=== PATIENT | male | born 2000 | race Caucasian/White ===

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

== ENCOUNTER 2022-01-14 10:05 | Emergency (ER) | payer BC, SELFPAY ==
[2022-01-14 10:10] VITALS: BP 138/64; PULSE 74; RESP 17; TEMP 36.6; O2SAT 98
--- NOTE | 2022-01-14 10:10 | ED.SKABFB ---
HPI - Skin/Abscess/Foreign Bdy General Chief complaint: Skin/Abscess/Foreign Body Stated complaint: Rash Time Seen by Provider: 01/14/22 10:10 Source: patient Mode of arrival: ambulatory Limitations: no limitations History of Present Illness HPI narrative: Mr. Dueñas is a 21-year-old male patient presenting to the clinic today with complaints of skin itching. He reports that his girlfriend had poison marjorie approximately 1 week ago and is concerned that he may be developing the rash. He denies any current rash however he has itchy skin. MD complaint: rash Related Data Home Medications Medication Instructions Recorded Confirmed No Home Medications 01/14/22 01/14/22 Allergies Allergy/AdvReac Type Severity Reaction Status Date / Time No Known Allergies Allergy Verified 01/14/22 10:20 Review of Systems Review of Systems: Pertinent positives per HPI. Patient denies any fever, chills, headache, visual changes, dizziness, cough, runny nose, sore throat, shortness of breath, chest pain, palpitations, nausea, vomiting, diarrhea, constipation, abdominal pain, or any urinary issues. PMFSH Comments At the time of my signature, I reviewed and agree with the nursing past medical, surgical, social, and family history. There is no relevant family history pertinent to the patient complaint. Exam Narrative: General: Well-developed, well nourished, in no apparent distress Head: Normocephalic, atraumatic. Cardio: Regular rate and rhythm, s1 and s2 normal, no murmur appreciated. Resp: Clear to auscultation bilaterally, no rhonchi, rales, wheezing or rubs. Integumentary: [place], warm, and dry, intact without lesion, no rashes. Course Course Emergency Course: Portions of this record may have been created with voice recognition software. Level of Care: Express Care Visit Vital Signs Vital signs: Vital Signs Temperature 36.6 C 01/14/22 10:10 Pulse Rate 74 01/14/22 10:10 Respiratory Rate 01/14/22 10:10 Blood Pressure 138/64 01/14/22 10:10 Pulse Oximetry 98 01/14/22 10:10 Temperature 36.6 C 01/14/22 10:10 Pulse Rate 74 01/14/22 10:10 Respiratory Rate 01/14/22 10:10 Blood Pressure 138/64 01/14/22 10:10 Pulse Oximetry 98 01/14/22 10:10 Vital signs reviewed MDM - Skin/Abscess/Foreign Bdy MDM Narrative Medical decision making narrative: At the time of visit patient was resting comfortably on the exam table. He denies any obvious rash however he reports that he has some itchy skin. Skin appears to be dry upon assessment. Supportive measures were discussed for pruritus and patient voiced understanding and agrees to treatment plan. Differential Diagnosis Differential diagnosis: Likely urticaria, contact dermatitis and other (Itchy skin) Discharge Plan Discharge Clinical Impression: Pruritus Patient Disposition: Home, Self-Care Condition: Stable Instructions: Itchy Skin (ED) Additional Instructions: Avoid hot showers Shower every other day Moisturize skin 1-2 times a day May take Benadryl as needed for itching. Follow-up with your PCP in 3 to 5 days if symptoms persist or sooner if they worsen. Prescriptions: No Action No Home Medications RF: 0 Follow-up/Referrals: Sharan Gabriel MD [Primary Care Provider] - Stand Alone Forms: Work/School Release IP Time of Disposition: 10:21 Quality NIHSS Nursing Documentation ED NIHSS nursing documentation: reviewed/agree
== END 2022-01-14 10:30 | disposition home or self-care (01) ==
PROVIDERS: Emergency Provider Nurse Practitioner Family; PCP Pediatrics
DX: L29.9 Pruritus, unspecified (principal)
CPT/HCPCS: 99211; G0463

== ENCOUNTER 2025-07-26 11:34 | Emergency (ER) | payer OTHER, SELFPAY ==
[2025-07-26 11:45] VITALS: BP 156/78; PULSE 75; RESP 20; TEMP 36.6; O2SAT 98
--- NOTE | 2025-07-26 11:56 | ED_ITS ---
HPI - Skin/Abscess/Foreign Bdy General Chief complaint: Skin/Abscess/Foreign Body Stated complaint: Rash Time Seen by Provider: 07/26/25 11:48 Source: patient and RN notes reviewed Mode of arrival: ambulatory Limitations: no limitations History of Present Illness HPI narrative: 24-year-old male presents with concern for rash on his low abdomen, private area, face near his eyes. Reports he was walking [place] the [place] last [place]. He reports he used calamine without relief. He denies any swollen lips, swollen tongue, trouble breathing MD complaint: rash Related Data Home Medications ?Medication ?Instructions ?Recorded ?Confirmed ?Last Taken ?Type No Home Medications 01/14/22 07/26/25 U nknown History Allergies Allergy/AdvReac Type Severity Reaction Status Date / Time No Known Allergies Allergy Verified 07/26/25 11:40 Review of Systems Review of Systems: CONSTITUTIONAL: Denies malaise, chills, sweats, or fever. EYES: Denies redness, or discharge. ENT: Denies rhinorrhea, congestion, swollen lips, swollen tongue CARDIOVASCULAR: Denies chest pain, palpitations, or edema. RESPIRATORY: Denies cough or dyspnea. GASTROINTESTINAL: Denies abdominal pain, nausea, vomiting SKIN: Reports itchy rash the face, groin, lower abdomen MUSCULOSKELETAL: Denies joint pain or myalgia. NEUROLOGIC: Denies headache. All systems reviewed & are unremarkable except as noted in HPI and below PMFSH Comments At time of signature, agree with nursing past medical, surgical, social and family history. There is no relevant family history pertinent to the presenting complaint Exam Narrative: GENERAL: Well-appearing, well-nourished, and in no acute distress. HEAD: Normocephalic, atraumatic. EYES: PERRLA, conjunctivae clear, and EOMI. ENT: Mucous membranes moist. Oropharynx without edema, erythema or lesions. NECK: Supple. No lymphadenopathy CHEST: Clear to auscultation. No respiratory distress. HEART: Regular rate and rhythm. SKIN: Warm, dry. Irregular patches of erythema noted to the lower abdomen and around the eyes NEURO: Alert and oriented x3. PSYCH: Normal mood and affect Course Course Emergency Course: Patient is aware of diagnosis, understands and agrees to treatment plan. Anticipatory guidance given. Patient agrees to follow-up as directed and is aware of reasons to seek care at the emergency department. Portions of this record may have been created with voice recognition software Level of Care: Express Care Visit Vital Signs Vital signs: Vital Signs Temperature 97.9 F 07/26/25 11:45 Pulse Rate 75 07/26/25 11:45 Respiratory Rate 20 07/26/25 11:45 Blood Pressure 156/78 H 07/26/25 11:45 Pulse Oximetry 98 07/26/25 11:45 Oxygen Delivery Room Air 07/26/25 11:45 Temperature 97.9 F 07/26/25 11:45 Pulse Rate 75 07/26/25 11:45 Respiratory Rate 20 07/26/25 11:45 Blood Pressure 156/78 H 07/26/25 11:45 Pulse Oximetry 98 07/26/25 11:45 Oxygen Delivery Room Air 07/26/25 11:45 Reviewed. MDM - Skin/Abscess/Foreign Bdy MDM Narrative Medical decision making narrative: Does not appear at this time to be erythema multiforme, bullous, SJS, TEN; no evidence at this time to suggest RMSF, endocarditis or Lyme disease; patient looks well, nontoxic and is tolerating oral intake; no neurologic signs or symptoms; no headache, photophobia or neck pain; afebrile; appropriate for initial outpatient treatment; discussed the importance of follow-up, patient agrees; question, viral exanthema, contact dermatitis, allergic dermatitis, eczema, urticaria, [ xx ]. No soft palate or uvula edema, no tongue, lip edema or other mucosal involvement, no respiratory compromise, no stridor, no wheezi ng, no wheezing, no history of syncope, no hypotension, no nausea, vomiting, or diarrhea. Instructed patient to go to nearest ER immediately for any worsening symptoms including but not limited to: fever, spreading rash, pain, sore throat, headache, dizziness, chest pain, trouble breathing, or any symptoms concerning to the patient. Critical Care Time Critical Care Time Critical Care Time: No Discharge Plan Discharge Clinical Impression: Contact dermatitis Patient Disposition: Home Condition: Stable Instructions: Poison Vangie (ED) Additional Instructions: Prevention is always better than treatment. Learn to identify poison vangie, oak, and sumac and avoid it. Wear long sleeves, long pants, shoes, and socks. If you touched the plant, try to keep your hands away from your eyes, mouth, and face. Wash the skin thoroughly with soap and cool water as soon as possible. Scrub under the fingernails with a brush to prevent spreading of the resin to other parts of the body by touching or scratching. Remember to wash any clothing with soap and hot water as the resin can persist for many months and cause further dermatitis. You should NOT use antihistamine creams or lotions, anesthetic creams containing benzocaine, or antibiotic creams containing neomycin or bacitracin to the skin. These creams or ointments could make the rash worse. Antihistamines do not help to relieve itching caused by poison vangie dermatitis. For some people, adding oatmeal to a bath, applying cool wet compresses, and applying calamine lotion may help to relieve itching. Once the blisters begin weeping fluid, astringents containing aluminum acetate (Burow's solution) and [place] may help to relieve the rash. IF symptoms get worse to follow up with your primary care provider or seek ER visit if you developing difficulty breathing, weakness, dizziness. Patient Language: Tunisian Prescriptions: No Action No Home Medications Follow-up/Referrals: UNKNOWN,DOCTOR [Primary Care Provider] Time of Disposition: 11:57
--- OUTSIDE RECORDS SUMMARY | 2025-07-26 12:14 | XMS_ITS | Clinical Summary ---
Author Organization [facility] Address [address] [place] [address] Care Team Providers Care Hop Worker Name Role Phone Andrew Mosher NP Primary Care Provider [phone] Allergies No known active allergies Medications cyclobenzaprine (FLEXERIL) 5 mg tabletIndicatio ns:Muscle Spasm Take 1 tablet (5 mg total) by mouth nightly as needed for muscle spasms for up to 15 days 15 tablet 07/22/2024 Active ibuprofen (ADVIL,MOTRIN) 600 mg tabletIndicatio ns:Flank pain Take 1 tablet (600 mg total) by mouth every 6 (six) hours as needed for pain for up to 30 doses 30 tablet 07/22/2024 Active albuterol HFA (PROVENTIL HFA,VENTOLIN HFA,PROAIR HFA) 90 mcg/actuation inhaler Inhale 2 puffs every 6 (six) hours as needed for wheezing 1 each 11/21/2024 11/22/19 26 Active Active Problems Problem Noted Date Diagnosed Date S/P ORIF (open reduction internal fixation) frac ture 06/28/2024 Assessment & Plan (06/28/2024 11:13 AM CDT): He has flare ups of pain with decreased range of motion to the left ankle and will need time off work when this happens Chronic pain of left ankle 06/28/2024 Assessment & Plan (06/28/2024 11:13 AM CDT): He has flare ups of pain with decreased range of motion to the left ankle and will need time off work when this happens Class 1 obesity due to exces s calories without serious comorbidity with body mass index (BMI) of 34.0 to 34.9 in adult 06/28/2024 Assessment & Plan (07/22/2024 1:35 PM ART MANAGER): BMI follow-up: Education provided Assessment & Plan (06/28/2024 11:42 AM CDT): Plan for weight loss is to decrease calories in diet and increase activity Trimalleolar fracture of left ankle 12/16/2022 Sprain of anterior talofibular ligament of right ankle 04/25/2019 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 Abdominal pain 07/04/2016 Immunizations Immunization Administration Dates Next Due DTP 2002 DTaP 02/08/2004,03/31/2003,2002 DTaP, Unspecified 02/11/2008 HPV, Quadrivalent 04/17/2014 HPV9 11/11/2016 Hep A, Pediatric 12/10/2005 Hep A, Unspecified 02/03/2007 Hep B, Adolescent or Pediatric 03/31/2003,2002,2002 HiB 02/08/2004, 3,2002,10/06 IPV 02/08/2004,2002,2002 Influenza, Quadrivalent, Spl it, Preservative Free, Intramuscular 06/29/2016 Influenza, Unspecified 07/22/2024(Deferr ed: Patient Refused),06/11/2023(Deferred: Patient Refused),07/01/2019,08/08/2004, 003 MMR 02/11/2008,08/07/2003 Meningococcal B, OMV (Bexsero) 07/01/2019 Meningococcal MCV4P (Menactra) 07/01/2019,2013 Pneumococcal Conjugate 7-Valent 08/07/20 03,03/31/2003,2002,10/06 Polio, Unspecified 02/11/2008 Tdap 04/17/2014 Varicella 02/11/2008,02/08/2004 Medical History Medical History Date Comments No known health problems Family History Medical History Relation Name Comments Cancer Other Hypertension Other Relation Name Status Comments Other Social History Tobacco Use Types Packs/Day Years Used Date Smoking Tobacco: Never Smokeless Tobacco: Never Tobacco Cessation:Counseling Given: Yes Alcohol Use Standard Drinks/Week Comments Never 0 (1 standard drink = 0.6 oz pur e alcohol) AUDIT-C Answer Date Recorded Frequency of Alcohol Consumption Never 04/26/2019 Average Number of Drinks Not on file 019 Frequency of Binge Drinking Not on file 04/01 PHQ-2 Answer Date Recorded PHQ-2 Total Score (If total score is 3 or more points, staff should administer the PHQ-9) 0 06/28/2024 Hunger Vital Sign Answer Date Recorded Within the past 12 months, y ou worried that your food would run out before you got the money to buy more. Never true 04/17/20 23 Within the past 12 months, t he food you bought just didn't last and you didn't have money to get more. Never true 04/17/2023 Personal Safety Answer Date Recorded Have you ever been in or are you currently in a harmful physical or emotional relationship or is someone making you feel afraid or unsafe? Denies 12/17/2022 Sex and Gender Information Value Date Recorded Sex Assigned at Not on file Legal Sex Male 11:54 AM ART MANAGER Gender Identity Not on file Sexual Orientation Not on file Last Filed Vital Signs Vital Sign Reading Time Taken Comments Blood Pressure 129/60 11/21/2024 1:30 AM CDT Pulse 90 11/21/2024 2:00 AM CDT Temperature 36.2 C (97.1 F) 11/20/2024 11:13 PM CDT Respiratory Rate 16 11/20/2024 11:13 PM CDT Oxygen Saturation 97% 11/21/2024 2:00 AM CDT Inhaled Oxygen Concentration - - Weight 93 kg (205 lb) 11/20/2024 11:13 PM CDT Height 170.2 cm (5' 7) 11/20/2024 11:13 PM CDT Body Mass Index 32.11 11/20/2024 11:13 PM CDT Plan of Treatment Health Maintenance Due Date Last Done Comments Hepatitis C Screening 2002 Meningococcal B Vaccine (2 o f 2 - Bexsero SCDM 2-dose series) 12/30/2019 07/01/2019 DTaP/Tdap/Td Vaccine (7 - Td or Tdap) 04/17/2024 04/17/2014, 02/11/2008, 02/08/2004, Additional history exists Influenza Vaccine (#1) 2025 9, 06/29/2016, 08/08/2004, Additional history exists Depression Screening 06/28/2025 06/28/2024 Regular Well Visit/Exam 18-64 06/28/2025 06/28/2024 Hepatitis B Screening Completed 03/31/2003 , 2002, 2002 Pneumococcal vaccine <65 Completed 003, 03/31/2003, 2002, Additional history exists Varicella Vaccines Completed 02/11/2008, 02/08/2004 HPV Vaccines Completed 11/11/2016, 04/17/2014 Medical Devices Implanted Type Area Green Chain Worker Device Identifier Shelf Expiration Date Model / Serial / Lot Synthes 2.7mm 5mm 22mm 2.5mm Self Tap Stardrive Cortical T8 Screw Bone 202.882 - [id number] Implanted:Qty: 1 on 12/17/2022 by Criselda Davenport MD at [facility] Left: Ankle Synthes I 202.882 / / Synthes 3.5mm 6mm 14mm 2.5mm Self Tap Small Hexagonal Socket Low Profile 204.814 - [id number] Implanted:Qty: 1 on 12/17/2022 by Criselda Davenport MD at [facility] Left: Ankle Synthes I 204.814 / / Synthes 4mm 6mm 26mm Small Hexagonal Socket Cancellous Full Thread Screw 206.026 - [id number] Implanted:Qty: 1 on 12/17/2022 by Criselda Davenport MD at [facility] Left: Ankle Synthes I 206.026 / / Synthes 2.7mm 5mm 32mm 2.5mm Self Tap Stardrive Cortex T8 Screw Bone 202.892 - [id number] Implanted:Qty: 1 on 12/17/2022 by Criselda Davenport MD at [facility] Left: Ankle Synthes I 202.892 / / Synthes 3.5mm 6mm 70mm 2.5mm Self Tap Small Hexagonal Socket Low Profile 204.870 - [id number] Implanted:Qty: 1 on 12/17/2022 by Criselda Davenport MD at [facility] Left: Ankle Synthes I 204.870 / / Synthes Lcp 67mm 7 Hole Low Profile Cut To Length Plate Bone Stainless 249.683 - [id number] Implanted:Qty: 1 on 12/17/2022 by Criselda Davenport MD at [facility] Left: Ankle Synthes I 249.683 / / Synthes 2.7mm 5mm 36mm 2.5mm Self Tap Stardrive Cortical T8 Screw Bone 202.896 - [id number] Implanted:Qty: 1 on 12/17/2022 by Criselda Davenport MD at [facility] Left: Ankle Synthes I 202.896 / / Synthes 2.7mm 5mm 10mm 2.5mm Self Tap Stardrive Cortex T8 Screw Bone 202.870 - [id number] Implanted:Qty: 1 on 12/17/2022 by Criselda Davenport MD at [facility] Left: Ankle Synthes I 202.870 / / Synthes 2.7mm 5mm 48mm 2.5mm Self Tap Stardrive Cortical T8 Screw Bone 202.966 - [id number] Implanted:Qty: 1 on 12/17/2022 by Criselda Davenport MD at [facility] Left: Ankle Synthes I 202.966 / / Synthes 2.7mm 5mm 46mm 2.5mm Self Tap Stardrive Cortical T8 Screw Bone 202.965 - [id number] Implanted:Qty: 1 on 12/17/2022 by Criselda Davenport MD at [facility] Left: Ankle Synthes I 202.965 / / Synthes 3.5mm 6mm 16mm 2.5mm Self Tap Small Hexagonal Socket Low Profile 204.816 - [id number] Implanted:Qty: 2 on 12/17/2022 by Criselda Davenport MD at [facility] Left: Ankle Synthes I 204.816 / / Synthes 2.4mm 18mm Self Tap Stardrive Cortex T8 Screw Bone 201.768 - [id number] Implanted:Qty: 2 on 12/17/2022 by Criselda Davenport MD at [facility] Left: Ankle Synthes I 201.768 / / Synthes Lcp 12mm [id number] .7mm 10 Hole Collar 1/3 Tubular Plate Bone 241.401 - [id number] Implanted:Qty: 1 on 12/17/2022 by Criselda Davenport MD at [facility] Left: Ankle Synthes I 241.401 / / Synthes 3.5mm 6mm 18mm 2.5mm Self Tap Small Hexagonal Socket Low Profile 204.818 - [id number] Implanted:Qty: 1 on 12/17/2022 by Criselda Davenport MD at [facility] Left: Ankle Synthes I 204.818 / / Explanted Type Area Green Chain Worker Device Identifier Shelf Expiration Date Model / Serial / Lot [employer] Oleksandr .062in 4in [place] Both Ends Orthopedic Wire [id number] - [id number] Explanted:Qty: 3 on 12/17/2022 at [facility] Left: Ankle [employer] [id number] / / Insurance [employer] [facility] [place] [address] [employer] Care Teams Hop Worker Relationship Specialty [place] [address] [address] PCP - General Family Medicine 06/28/24
--- OUTSIDE RECORDS SUMMARY | 2025-07-26 12:14 | XMS_ITS | Clinical Summary ---
Author Organization [facility] Address [address] [place] [address] Phone Care Team Providers Care Sales Contractor Name Role Phone Andrew Mosher APRN, SUNDAR Primary Care Provider Allergies No known active allergies Medications naproxen (NAPROSYN) 500 MG Tablet Take 1 Tablet by mouth 2 times daily as needed for Moderate or more severe pain. 20 Tablet 04/11/2025 Active Social History Tobacco Use Types Packs/Day Years Used Date Smoking Tobacco: Never Assessed Sex and Gender Information Value Date Recorded Sex Assigned at Not on file Legal Sex Male 9:03 PM CDT Gender Identity Not on file Sexual Orientation Not on file Last Filed Vital Signs Vital Sign Reading Time Taken Comments Blood Pressure 147/81 04/11/2025 10:00 PM CDT Pulse 83 04/11/2025 9:57 PM CDT Temperature 36.6 C (97.8 F) 04/11/2025 6:54 PM CDT Respiratory Rate 16 04/11/2025 9:57 PM CDT Oxygen Saturation 98% 04/11/2025 9:57 PM CDT Inhaled Oxygen Concentration - - Weight 97.5 kg (215 lb) 04/11/2025 6:54 PM CDT Height 170.2 cm (5' 7) 04/11/2025 6:54 PM CDT Body Mass Index 33.67 04/11/2025 6:54 PM CDT Plan of Treatment Health Maintenance Due Date Last Done Comments Hepatitis C Virus (HCV) Screening 2002 Meningococcal B Immunization (2 of 2 - Bexsero SCDM 2-dose series) 12/30/2019 07/01/2019 Influenza Immunization (#1) 05/01/202508/2018, 06/29/2016, 08/08/2004, Additional history exists SARS-COV-2 Immunization ( - 2024-26 season) 2025 Respiratory Syncytial Virus (RSV) Immunization (Adult) (1 - 1-dose 75+ series) 2077 Hepatitis B Immunization Completed 003, 2002, 2002 Pneumococcal Immunization Combined Aged Out 08/07/2003, 03/31/2003, 2002, Additional history exists No longer eligible based on patient's age to complete this topic Varicella Immunization Completed 02/11/2008, 2003 TdaP Immunization Completed 04/17/2014 Human Papillomavirus (HPV) Immunization Completed 11/11/2016, 04/17/2014 Meningococcal Immunization (ACWY) Completed 07/01/2019, 04/17/2014 Rotavirus Immunization Aged Out No lo nger eligible based on patient's age to complete this topic Insurance [facility] [address] Care Teams Sales Contractor Relationship Specialty Start Date End Date Andrew Mosher APRN, ANIMAL HERDER [address] [place] [address] PCP - General Advanced Practice Nurse 04/11/25
== END 2025-07-26 12:00 | disposition home or self-care (01) ==
PROVIDERS: Emergency Provider Nurse Practitioner
DX: L25.9 Unspecified contact dermatitis, unspecified cause (principal)
CPT/HCPCS: 99211; G0463